=== PATIENT | male | born 1940 | race Caucasian/White ===

== ENCOUNTER → 2020-02-29 12:43 | Outpatient (BNVA) | payer MEDICARE, SELFPAY | PROVIDERS: Family Provider Family Medicine; PCP Family Medicine; Visit Provider Family Medicine | DX: Z20.828 Contact with and (suspected) exposure to other viral communicable diseases (principal) | CPT/HCPCS: 87635 ==

== ENCOUNTER → 2020-07-07 11:04 | Outpatient (BNVA) | payer MEDICARE, SELFPAY | PROVIDERS: Family Provider Family Medicine; PCP Family Medicine; Visit Provider Family Medicine | DX: R07.9 Chest pain, unspecified (principal); M35.3 Polymyalgia rheumatica | CPT/HCPCS: 71046; 80053; 84484; 85025; 85651 ==

== ENCOUNTER → 2020-07-14 08:23 | Outpatient (BNVA) | payer MEDICARE, SELFPAY | PROVIDERS: Family Provider Family Medicine; PCP Family Medicine; Visit Provider Family Medicine | DX: M35.3 Polymyalgia rheumatica (principal) | CPT/HCPCS: 85651 ==

== ENCOUNTER → 2020-07-15 10:13 | Outpatient (BNVA) | payer MEDICARE, SELFPAY | PROVIDERS: Family Provider Family Medicine; PCP Family Medicine; Referring Provider Family Medicine; Visit Provider Family Medicine | DX: R07.89 Other chest pain (principal) | CPT/HCPCS: 84484 ==

== ENCOUNTER 2020-08-09 08:55 | Outpatient (CLI) | payer MEDICARE, SELFPAY ==
[2020-08-09] MEDS: iohexol 300 mg/mL 100 mL Btl IV (09:20)
--- NOTE | 2020-08-09 09:30 | CT_ITS ---
WS: [id number] CT scan of the chest with IV contrast, additional two-dimensional coronal and sagittal reconstruction was performed. 08/09/2020 Clinical Data: left scapular chest pain Comparison: PA and lateral chest, 07/07/2020 DLP: 847.[address] scans at [facility] use at least one of these dose optimization techniques: automat ed exposure control; mA and/or kV adjustment per patient size (includes targeted exams where dose is matched to clinical indication); or iterative reconstruction. Findings: No nodules, masses or effusions are seen. The heart size is normal with no pericardial effusion. The pulmonary arterial system and thoracic aorta demonstrate no abnormalities or dilatations. No pneumoni a or pneumothorax is seen. There is no axillary or significant mediastinal adenopathy. The trachea bi furcates normally into the bronchi. The thyroid gland shows normal enhancement. There is a small hiat al hernia. The upper abdomen demonstrates no abnormalities. 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 The scapula and sternum are unremarkable. The ribs are intact. CT/CT chest w con* [id number] Impression: Negative for acute cardiopulmonary disease.
== END 2020-08-09 08:56 | disposition home or self-care (01) ==
LOC: RADWPI 08:56
PROVIDERS: PCP Family Medicine; Visit Provider Family Medicine
DX: R07.89 Other chest pain (principal)
CPT/HCPCS: 71260; Q9967

== ENCOUNTER → 2022-09-19 09:38 | Outpatient (BNVA) | payer MEDICARE, SELFPAY | PROVIDERS: PCP Family Medicine; Visit Provider Family Medicine | DX: I10 Essential (primary) hypertension (principal) | CPT/HCPCS: 80053; 85025 ==

== ENCOUNTER 2024-08-24 13:50 | Outpatient (CLI) | payer MEDICARE, SELFPAY ==
--- NOTE | 2024-08-24 13:57 | XR_ITS ---
WS: [id number] XR cervical spine 3V* [id number] REASON FOR EXAM: bilateral paresthesias FINDINGS: Straightening of the normal lordosis of the cervical spine. Normal odontoid. From C4-T1 there is a large fused anterior osteophytic mass. C5-C6 and C6-C7 disc spaces are nearly obliterated. C7-T1 disc space is moderately narrowed. There is 3 mm of anterolisthesis of C3 in relation to C4. XR/XR cervical spine 3V* [id number] IMPRESSION: Significant degenerative spondylosis of the cervical spine which is progressive since 2014.
== END 2024-08-24 13:51 | disposition home or self-care (01) ==
LOC: RAD 13:52
PROVIDERS: PCP Family Medicine; Visit Provider Family Medicine
DX: M35.3 Polymyalgia rheumatica (principal); M50.822 Other cervical disc disorders at C5-C6 level; M50.823 Other cervical disc disorders at C6-C7 level; I10 Essential (primary) hypertension; M47.892 Other spondylosis, cervical region; R93.7 Abnormal findings on diagnostic imaging of other parts of musculoskeletal system; M89.8X8 Other specified disorders of bone, other site; M50.33 Other cervical disc degeneration, cervicothoracic region
CPT/HCPCS: 72040; 80053; 85025; 85651

== ENCOUNTER → 2024-11-17 08:21 | Outpatient (BNVA) | payer MEDICARE, SELFPAY | PROVIDERS: PCP Family Medicine; Visit Provider Surgery | DX: K46.9 Unspecified abdominal hernia without obstruction or gangrene (principal) | CPT/HCPCS: 99203 ==

== ENCOUNTER 2025-02-03 07:14 | Outpatient (CLI) | payer OTHER, SELFPAY ==
--- NOTE | 2025-02-03 08:30 | CT_ITS ---
WS: [id number] CT ABDOMEN AND PELVIS WITH CONTRAST HISTORY: right inguinal hernia TECHNIQUE: Imaging performed of the abdomen and pelvis with IV contrast. Single phase imaging of the abdomen. Coronal and sagittal reformats are submitted. All CT scans at [facility] use at least one of these dose optimization techniques: automated exposure control; mA and/or kV adjustment per patient size (includes targeted exams where dose is matched to clinical indication); or iterative reconstruction. IV CONTRAST: Omnipaque 350; 100 mL IV. Oral contrast: Yes. DLP: 406.92 mGy.cm COMPARISON: 02/03/2007 Lower thorax: Benign calcified granuloma LEFT lower lobe. Heart is normal size. Small hiatal hernia. Liver/biliary system: Normal size with no intrahepatic dilatation. Gallbladder: Normal. No gallstones or wall thickening. No pericholecystic fluid. Pancreas: Normal size pancreas and pancreatic duct. No adjacent inflammation. Spleen: Normal size spleen. No mass or infarct. Adrenal glands: Normal. Right kidney: Normal. Left kidney: Normal. Aorta: Normal. Lymphadenopathy: None. Free fluid: None. GI tract: No small bowel obstruction. No colon obstruction. The appendix is normal. No colitis. Abdominal wall: Normal umbilical hernia. Pelvis: No free fluid or adenopathy within the pelvis. Large fat-containing RIGHT inguinal hernia. There is a small bowel loop which extends into the very proximal hernia sac but does not extend into the sac. There is no edema or fluid. No hernia on the LEFT. Bones: Degenerative changes in the lumbar spine. CT/CT abdomen pelvis w con* [id number] IMPRESSION: 1. Large RIGHT inguinal hernia containing predominantly fat. There is a loop o f small bowel at the orifice of the hernia but does not extend into the hernia. There is no evidence for incarceration. No fluid in the hernia sac or fat stra nding. 2. No GI tract obstruction. 3. No ascites or adenopathy.
[2025-02-03 08:44] LABS: Blood Urea Nitrogen 17 mg/dL (8-23)
[2025-02-03] MEDS: iohexol 350 mg/mL 500 mL Btl (per mL) PO (08:52)
[2025-02-03] MEDS: iohexol 350 mg/mL 500 mL Btl (per mL) IV (08:58)
== END 2025-02-03 07:15 | disposition home or self-care (01) ==
LOC: RAD 07:15
PROVIDERS: PCP Family Medicine; Visit Provider Surgery
DX: K40.90 Unilateral inguinal hernia, without obstruction or gangrene, not specified as recurrent (principal)
CPT/HCPCS: 74177; 82565; 84520

== ENCOUNTER → 2025-02-09 14:18 | Outpatient (BNVA) | payer OTHER, SELFPAY | PROVIDERS: PCP Family Medicine; Visit Provider Surgery | DX: Z09 Encounter for follow-up examination after completed treatment for conditions other than malignant neoplasm (principal); K40.90 Unilateral inguinal hernia, without obstruction or gangrene, not specified as recurrent | CPT/HCPCS: 99213 ==

== ENCOUNTER 2025-02-22 05:49 | Day surgery (SDC) | payer OTHER, SELFPAY ==
--- NOTE | 2025-02-21 08:58 | ANES.PREANE2 ---
Pre-Anesthetic Assessment Height/Weight: Height 5 ft 9 in Preop Diagnosis: Inguinal hernia Operation Date: 02/22/25 07:00 Proposed Procedures p RIGHT Open Inguinal Hernia Repair w/ Mesh(Right) - Kunal Garcia MD Was Beta Tammi taken within 24 hours: N/A Was Clonidine taken within 24 hours: N/A Social No alcohol and No tobacco Exam alert, oriented x 3, clear to auscultation bilaterally and regular rate & rhythm Airway Submandibular: within normal limits Cervical ROM: within normal limits Mallampati: Class III Anesthetic Plan ASA status: 3 Anesthesia: General Other: No prior issues with anesthesia NPO since yesterday evening History of polymyalgia rheumatica, no current treatment. States that initially he took steroids but has not been taking those for a while Denies any hypertension, preop BP 158/81 Labs reviewed from 02/03/2025, CR 1.4 at that time. This appears to be baseline Patient states that he has a chronic cough but denies any fevers/chills. Lungs clear on auscultation METs greater than 4 Plan for general anesthesia Medications/Allergies Home Medications ?Medication ?Instructions ?Recorded ?Confirmed ?Last Taken ?Type No Known Home Medications 10/05/21 02/18/25 Unknown History Allergies Allergy/AdvReac Type Severity Reaction Status Date / Time Sulfa (Sulfonamide Allergy Unknown ALGY-Rash Verified 02/18/25 11:16 Antibiotics) [facility] Anesthesia Medical History History of trigger finger Lumbar disc disease Arthritis PMR (polymyalgia rheumatica) Surgical History History of femoral hernia repair Hx of tonsillectomy Family History Father Cancer Grandmother Cancer Denies family history of Suicide Anesthesia complication Lung disease Stroke Social History Smoking and tobacco/nicotine status: never used tobacco/nicotine Alcohol intake: never Substance/Drug Use: never
[2025-02-22] VITALS (12 sets, daily range): BP systolic 120–163; BP diastolic 73–87; PULSE 69–100; RESP 11–19; TEMP 36.1–36.6; O2SAT 94–98; BMI 26.6
--- NOTE | 2025-02-22 06:54 | P.HPUD_ITS ---
Surgery/Procedure H&P Update DATE OF PROCEDURE: February 22, 2025 DATE H&P PERFORMED: 02/09/25 H&P UPDATE INFORMATION: I have reviewed H&P completed within last 30 days, I have examined patient prior to procedure, No changes to prior documentation, H&P is in [facility] EMR on date indicated and Risks and benefits of the procedure reviewed PREOP DIAGNOSIS: Inguinal hernia PLANNED PROCEDURE: Operation Date: 02/22/25 07:00 Proposed Procedures p RIGHT Open Inguinal Hernia Repair w/ Mesh(Right) - Kunal Garcia MD
[2025-02-22] MEDS: ceFAZolin 2,000 mg SDV 2000 MG IVP (06:58)
[2025-02-22] MEDS: lidocaine-epi 1% 20 mL INJ 10 ML INJECTION (08:36)
[2025-02-22] MEDS: BUPivacaine 0.25% INJ 10 mL INJECTION (08:37)
--- NOTE | 2025-02-22 08:43 | PM.OP ---
Operative Report Date of procedure: February 22, 2025 Pre-op diagnosis: Right inguinal hernia Post-op diagnosis: direct right inguinal hernia Post-op findings: There was a large direct right inguinal hernia with obliteration of the majority of the floor of the inguinal canal, no indirect sac noted, there were 2 small lipomas of the cord that were excised Procedure done: Open repair of right inguinal hernia Surgeon: Kunal Garcia MD Paper Sales Representative: NATHALY OR Staff Estimated blood loss: 5 Complications: none Brief History: This is a 84-year-old male with a right inguinal hernia presents for repair after discussion of all risk and benefits as documented in my preop note we decided to proceed. Procedure: Patient was brought into the OR, he was placed in a supine position. General anesthesia was given. The groin was prepped and draped in the usual sterile fashion. A timeout was conducted. A 5 cm incision was made on the right groin overlying the area of the inguinal canal. The incision was deepened into the subcutaneous tissue, Julieth's fascia was opened, the neurosis of the external oblique was identified. The aponeurosis of the external oblique was then carefully opened with a scalpel and then I used Metzenbaum to open it from the center To the external ring and to the area overlying the internal ring. With careful dissection I was able to separate the cord structures from the floor of the canal as well as from the jerry of the canal. Ligaments are cleared with a [place]. At this point the floor of the canal was completely visible and it was noted that he had a large direct defect with almost complete obliteration of the floor of the canal. I proceeded to explore the cord, I opened the cremaster in a longitudinal fashion and then carefully dissected the cord structures to the area of the internal ring, no evidence of hernia sac was noted with 2 small cord lipomas were noted and were transected and sent to pathology. I then proceeded to reinforce the floor of the canal with polypropylene mesh. The mesh was fixed with #0 Prolene to the pubic tubercle medially, the shelving edge of the inguinal ligament on the inferior direction, the conjoined tendon on the superior direction and the tails of the mesh were joined laterally to recreate the internal ring. Careful consideration was made during the mesh placement.injured the ilioinguinal nerve, the iliohypogastric nerve was also identified and preserved. Mesh placement was noted to be successful. I then proceeded to irrigate the wound, verify hemostasis and closed in layers using #2 Vicryl for the aponeurosis of the external oblique, #2-0 Vicryl for Julieth's fascia and #3-0 Vicryl for the subcutaneous tissue. Local anesthesia was infiltrated and the skin was closed with #4-0 Monocryl. At the end of the procedure all counts were correct the patient tolerated the well the procedure was transferred to the PACU in stable condition
[2025-02-22] MEDS: oxyCODONE 5 mg IR Tab/Cap PO (09:49)
--- NOTE | 2025-02-22 10:17 | ECG_ITS ---
[email or web address] Test Date: 2025-02-22 Pat Name: Maninder Espinosa Department: Room: Gender: Male Strategy Specialist: : 1940 Requested By: Travis Lino Order Number: [id number] Юлия MD: Rosendo Henderson M.D. Measurements Intervals [place] Rate: 95 P: 51 MI: 182 QRS: -7 QRSD: 84 T: 29 QT: 357 QTc: 451 Interpretive Statements SINUS RHYTHM WITH OCCASIONAL VENTRICULAR PREMATURE COMPLEXES POSSIBLE ANTERIOR MYOCARDIAL INFARCTION , OF INDETERMINATE AGE [30 ms Q WAVE IN V3/V4, OR R < 0.2 mV IN V4] Possible left atrial enlargement INFERIOR MYOCARDIAL INFARCTION , PROBABLY OLD [40+ ms Q WAVE AND/OR ST/T ABNORMALITY IN II/aVF] No previous ECG available for comparison Electronically Signed On 02-25-2025 23:33:59 CDT by Rosendo Henderson M.D. [email or web address]
--- NOTE | 2025-02-22 10:20 | PC.NURSE ---
1015 - pt heart rate elevated . pt heart rate noted to be irregular at this time. heart rate was noted to be regular in pre-op. anesthesia notified and ekg ordered.
--- NOTE | 2025-02-22 10:42 | ANE.PACU2 ---
Inpatient post-anesthesia follow up: Airway intact: Yes Vital signs: Temperature 97.8 F Pulse Rate 91 Respiratory Rate 18 Blood Pressure 163/82 Pulse Oximetry 95 Oxygen Delivery Me thod Room Air Oxygen Flow Rate Fraction of Inspir ed Oxygen Hydration adequate: Yes Nausea and vomiting: No Pain level: 1 Mental status: Baseline
--- NOTE | 2025-02-22 10:42 | PC.NURSE ---
Dr. herrera into see pt. pt discharged home.
== END 2025-02-22 10:42 | disposition home or self-care (01) ==
PROVIDERS: PCP Family Medicine; Visit Provider Surgery
PROC: (CPT 49505; principal; 2025-02-22 07:00)
DX: K40.90 Unilateral inguinal hernia, without obstruction or gangrene, not specified as recurrent (principal)
CPT/HCPCS: 49505; 88302; 93005; C1781; J0690; J1100; J2371; J2405; J2704; J3010; J3490; J7030; J9999

== ENCOUNTER → 2025-03-09 14:24 | Outpatient (BNVA) | payer OTHER, SELFPAY | PROVIDERS: PCP Family Medicine; Visit Provider Surgery | DX: Z98.890 Other specified postprocedural states (principal); Z87.19 Personal history of other diseases of the digestive system | CPT/HCPCS: 99024 ==